=== PATIENT | male | born 1990 | race Caucasian/White ===

== ENCOUNTER 2020-12-21 07:52 | Emergency (ER) | payer SELFPAY ==
[2020-12-21 08:41] VITALS: BP 124/83
[2020-12-21] MEDS ORDERED: FLUORESCEIN 1 MG STRIP OP ONE (10:21)
[2020-12-21] MEDS ORDERED: TETRACAINE 0.5% OPHTH SOLN 4ML OU ONE (10:22)
[2020-12-21] MEDS ORDERED: TETANUS,DIPH,PERTUSS(ACELL) VACCINE 0.5 ML SYRINGE IM ONE (11:17)
--- NOTE | 2020-12-21 11:31 | Emergency Department Report ---
ED Eye Problem HPI - General Chief complaint: Eye Problems Stated complaint: LEFT EYE INURY Time Seen by Provider: 12/21/20 09:23 Source: patient Mode of arrival: Ambulatory Limitations: No Limitations - History of Present Illness Initial comments: This is a 30-year-old male nontoxic, well nourished in appearance, no acute signs of distress presents to the ED with c/o of left eye redness that started yesterday.. 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 Patient stated he was rubbing it and believes he remove the small foreign body but still has eye pain. Patient denies any trauma to the eye. Denies any floaters. Patient denies any visual changes or decreased vision. Patient denies any fever, chills, nausea, vomiting, chest pain, breath, headache, stiff neck numbness or tingling. Patient denies any allergies. Patient denies being up-to-date with tetanus. MD chief complaint: eye pain, foreign body -: days(s) Location: left eye Place: work If Injury: none Eye Symptoms: pain, foreign body sensation Severity: mild Severity scale (0 -10): 3 If Pain, Quality: aching Consistency: constant Associated Symptoms: none. denies: headache, neck pain, nausea/vomiting, cough, rhinorrhea, fever, shortness of breath Treatments Prior to Arrival: none - Related Data Patient Tetanus UTD: No Previous Rx's Medication Instructions Recorded Last Taken Type Polymyxin B Sulf/Trimethoprim 3 drops OS TID 7 Days #1 bottle 12/21/20 Unknown Rx [Polytrim Eye Drops] Allergies Allergy/AdvReac Type Severity Reaction Status Date / Time No Known Allergies Allergy Unverified 12/21/20 08:37 ED Review of Systems ROS: Stated complaint: LEFT EYE INURY Other details as noted in HPI Comment: All other systems reviewed and negative Constitutional: denies: chills, fever Eyes: eye pain. denies: eye discharge, vision change ENT: denies: ear pain, throat pain Respiratory: denies: cough, shortness of breath, wheezing Cardiovascular: denies: chest pain, palpitations Endocrine: no symptoms reported Gastrointestinal: denies: abdominal pain, nausea, diarrhea Genitourinary: denies: urgency, dysuria Musculoskeletal: denies: back pain, joint swelling, arthralgia Skin: denies: rash, lesions Neurological: denies: headache, weakness, paresthesias Psychiatric: denies: anxiety, depression Hematological/Lymphatic: denies: easy bleeding, easy bruising ED Past Medical Hx - Past Medical History Previous Medical History?: No - Surgical History Past Surgical History?: No - Social History Smoking Status: Never Smoker Substance Use Type: Alcohol - Medications Home Medications: Home Medications Medication Instructions Recorded Confirmed Last Taken Type Polymyxin B Sulf/Trimethoprim 3 drops OS TID 7 Days #1 bottle 12/21/20 Unknown Rx [Polytrim Eye Drops] ED Physical Exam - General Limitations: No Limitations General appearance: alert, in no apparent distress - Head Head exam: Present: atraumatic, normocephalic - Eye Eye exam: Present: normal appearance, PERRL, EOMI. Absent: scleral icterus, conjunctival injection, nystagmus, periorbital swelling, periorbital tenderness Pupils: Present: normal accommodation - Expanded Eye Exam Expanded Eyelids: Normal Inspection: Left Pupils: Regular, Round: Left, Reactive: Left Sclera/Conjunctival: Normal Inspection: Left Visual acuity (R) = 20/: 20 Visual acuity (L) = 20/: 20 - Neck Neck exam: Present: normal inspection, full ROM. Absent: lymphadenopathy - Respiratory Respiratory exam: Absent: respiratory distress - Cardiovascular Cardiovascular Exam: Present: regular rate - Extremities Exam Extremities exam: Present: full ROM - Back Exam Back exam: Present: normal inspection, full ROM - Neurological Exam Neurological exam: Present: alert, oriented X3, normal gait - Psychiatric Psychiatric exam: Present: normal affect, normal mood - Skin Skin exam: Present: warm, dry, intact, normal color. Absent: rash - Other Other exam information: Under William lamp, I used fluorescein and tetracaine to examine cornea for corneal abrasion or foreign body, negative for foreign body noted upon exam. There is a small corneal abrasion noted to the left eye. ED Course Vital Signs 12/21/20 08:39 Temperature 97.7 F Pulse Rate 56 L Respiratory 18 Rate Blood Pressure 124/83 O2 Sat by Pulse 100 Oximetry - Reevaluation(s) Reevaluation #1: 12/21/20 11:33 Patient is speaking in full sentences with no signs of distress noted. ED Medical Decision Making - Medical Decision Making 30-year-old male that presents with left corneal abrasion. Patient is stable and was examined by me. Vital signs are stable. Patient received tetanus in the ER. Patient be discharged with Polytrim. Patient has normal visual acuity. Patient was instructed to follow-up with a information technology intern doctor in 2 days or if symptoms worsen and continue return to emergency room as soon as possible. At time of discharge, the patient does not seem toxic or ill in appearance. No acute signs of distress noted. Patient agrees to discharge treatment plan of care. No further questions noted by the patient. Critical care attestation.: If time is entered above; I have spent that time in minutes in the direct care of this critically ill patient, excluding procedure time. ED Disposition Clinical Impression: Left corneal abrasion Qualifiers: Encounter type: initial encounter Qualified Code(s): S05.02XA - Injury of conjunctiva and corneal abrasion without foreign body, left eye, initial encounter Disposition: DC- TO HOME OR SELFCARE Is pt being admited?: No Does the pt Need Aspirin: No Condition: Stable Instructions: Corneal Abrasion Additional Instructions: Follow-up with a information technology intern doctor in 2 days or if symptoms worsen and continue return to emergency room as soon as possible. Prescriptions: Polymyxin B Sulf/Trimethoprim [Polytrim Eye Drops] 3 drops OS TID 7 Days #1 bottle Referrals: PRIMARY CAREMD [Primary Care Provider] - 3-5 Days MARY JO DEL VALLE MD [Staff Physician] - 12/23/20 Forms: Work/School Release Form(ED) Time of Disposition: 11:35
== END 2020-12-21 11:59 | disposition home or self-care (01) ==
LOC: ED 07:52
DX: S05.02XA Injury of conjunctiva and corneal abrasion without foreign body, left eye, initial encounter (principal); Z79.899 Other long term (current) drug therapy; X58.XXXA Exposure to other specified factors, initial encounter; Y93.89 Activity, other specified; Y92.89 Other specified places as the place of occurrence of the external cause; Y99.8 Other external cause status
CPT/HCPCS: 90471; 90715; 99283

== ENCOUNTER 2021-05-07 21:27 | Observation (INO) | payer SELFPAY ==
[2021-05-07] MEDS ORDERED: NALOXONE 0.4 MG/1 ML INJ IV PRN (21:45)
[2021-05-07] MEDS ORDERED: LACTATED RINGERS 1,000 ML IV ONE (21:46)
--- NOTE | 2021-05-07 21:47 | Emergency Department Report ---
ED General Adult HPI - General Chief complaint: Overdose Stated complaint: I took a Percocet and some alcohol, and the next thing I know I am here PUI?: No Time Seen by Provider: 05/07/21 21:39 Source: patient, EMS (Verbal report received from emergency medical services. EMS documentation not available at time of chart dictation ) Mode of arrival: Stretcher Limitations: Other (Patient does not recall what happened) - History of Present Illness Initial comments: The patient is a 30-year-old gentleman. He is not known to myself previously. He is brought to the hospital today by EMS with an EMS articulated complaint of suspected overdose. The patient reports that he was in his usual state of health today, when he drank some beer, and took a Percocet recreationally. He does not know the exact time of ingestion. He states that he went into the shower, and the next thing he knew, he was on the floor. He does not remember falling. EMS reports that they were called for an unresponsive patient. EMS reports to myself that they found the patient on the floor with underwear on. EMS reports normal vital signs in the field, although at one point, they state that the patient was tachycardic and agitated. EMS gave the patient Narcan, which dramatically improved the patient's symptoms. The patient states he was taking the Percocet and alcohol for recreational reasons. He states he is not homicidal or suicidal. He does not have access to guns or firearms. He is not having hallucinations. He states he feels little bit anxious, and he feels like he fell onto his chest, and has some chest wall pain secondary to fall. He denies travel, surgery, immobilization, leg pain, leg swelling, DVT/PE risk factors. He denies focal extremity weakness or numbness. -: This evening Location: chest (Anterior chest wall) Quality: other (Patient does not describe the qualitative nature of) Consistency: now resolved Improves with: medication (Symptoms improved with Narcan) Worsens with: none (Patient denies exacerbating factors) - Related Data Previous Rx's Medication Instructions Recorded Last Taken Type Polymyxin B Sulf/Trimethoprim 3 drops OS TID 7 Days #1 bottle 12/21/20 Unknown Rx [Polytrim Eye Drops] Allergies Allergy/AdvReac Type Severity Reaction Status Date / Time No Known Allergies Allergy Unverified 12/21/20 08:37 ED Review of Systems ROS: Stated complaint: OVERDOSE Other details as noted in HPI Constitutional: malaise. denies: fever Eyes: denies: eye discharge ENT: denies: epistaxis Respiratory: denies: cough Cardiovascular: chest pain, syncope (Possible syncope. The patient is not sure) Gastrointestinal: denies: abdominal pain, nausea, diarrhea Musculoskeletal: myalgia Neurological: confusion Psychiatric: anxiety. denies: auditory hallucinations, visual hallucinations, homicidal thoughts, suicidal thoughts ED Past Medical Hx - Social History Smoking Status: Never Smoker Substance Use Type: Alcohol - Medications Home Medications: Home Medications Medication Instructions Recorded Confirmed Last Taken Type Polymyxin B Sulf/Trimethoprim 3 drops OS TID 7 Days #1 bottle 12/21/20 Unknown Rx [Polytrim Eye Drops] ED Physical Exam - General Limitations: Other (Patient intoxicated) General appearance: alert, appears intoxicated, anxious - Head Head exam: Present: atraumatic, normocephalic - Eye Eye exam: Present: normal appearance, EOMI. Absent: nystagmus - ENT ENT exam: Present: normal exam, normal orophraynx, mucous membranes moist, normal external ear exam - Neck Neck exam: Present: normal inspection, full ROM. Absent: tenderness, meningismus - Respiratory Respiratory exam: Present: normal lung sounds bilaterally, chest wall tenderness. Absent: respiratory distress, wheezes, rales, rhonchi, stridor - Cardiovascular Cardiovascular Exam: Present: normal rhythm, tachycardia, normal heart sounds. Absent: bradycardia, irregular rhythm, systolic murmur, diastolic murmur, rubs, gallop - GI/Abdominal GI/Abdominal exam: Present: soft. Absent: distended, tenderness, guarding, rebound, pulsatile mass - Rectal Rectal exam: Present: deferred - Extremities Exam Extremities exam: Present: normal inspection, full ROM, other (2+ pulses noted in the bilateral upper and lower extremities. There is no palpable cord. negative Homans sign. Muscular compartments are soft. The pelvis is stable.). Absent: pedal edema, calf tenderness - Back Exam Back exam: Present: normal inspection, full ROM. Absent: tenderness, CVA tenderness (R), CVA tenderness (L), paraspinal tenderness, vertebral tenderness - Neurological Exam Neurological exam: Present: alert, other (No facial droop. Tongue midline. Extraocular movements intact bilaterally. Facial sensation intact to light touch in V1, V2, V3 distribution bilaterally. 5 and a 5 strength in 4 extremities. Sensation intact to light touch in 4 extremities.) - Psychiatric Psychiatric exam: Present: anxious. Absent: homicidal ideation, suicidal ideation - Skin Skin exam: Present: warm, dry, intact, normal color. Absent: rash ED Course Vital Signs 05/07/21 05/07/21 05/07/21 21:40 21:46 22:00 Temperature Pulse Rate 103 H 105 H Respiratory 20 19 Rate Blood Pressure 123/79 112/62 Blood Pressure [Left] O2 Sat by Pulse 86 94 96 Oximetry O2 Sat by Pulse Oximetry [ Digit-Finger] 05/07/21 05/07/21 05/07/21 22:18 22:30 22:45 Temperature 99 F Pulse Rate 97 H 106 H 100 H Respiratory 13 14 18 Rate Blood Pressure 112/62 119/71 Blood Pressure 119/71 [Left] O2 Sat by Pulse 93 98 99 Oximetry O2 Sat by Pulse Oximetry [ Digit-Finger] 05/07/21 05/08/21 05/08/21 22:46 00:18 00:40 Temperature Pulse Rate 107 H 88 Respiratory 12 18 Rate Blood Pressure 119/71 Blood Pressure 107/76 [Left] O2 Sat by Pulse 96 100 Oximetry O2 Sat by Pulse 99 Oximetry [ Digit-Finger] - Reevaluation(s) Reevaluation #1: 05/07/21 22:02 Differential diagnosis, including but not limited to: Alcohol intoxication, polysubstance ingestion, costochondritis, chest wall pain, cervical spine injury, intracranial injury, orthostasis, vagal event Assessment and plan: 30-year-old gentleman, who reportedly took a Percocet, and consumed alcohol for recreational reasons, unknown time of ingestion, who subsequently lost consciousness in the shower, and family called 911. The patient is awake and alert and protecting his airway, minimally confused, and s till has clinical intoxication at this time. He does not meet criteria for 1013 hold, and he is cooperative. We will observe patient pending clinical sobriety. We will obtain noncontrast CT scan of the brain and cervical spine, x-ray of the chest, appropriate laboratory studies, start IV fluids, and order as needed Narcan. Patient denies travel, surgery, immobilization, DVT/PE risk factors, and I find him to be low risk by Jarod criteria for pulmonary embolism. 05/08/21 00:51 CT scan of the brain and cervical spine negative for acute findings. Laboratory studies are reviewed and appreciated. Noncontrast CT scan of the brain and the cervical spine showed no traumatic findings. Lung architecture noted on CT scan neck, as well as x-ray of the chest suggests aspiration pneumonitis. Patient O2 sat 93%. This may be contributing to his chest pain. Given overdose, mild hypoxia, evidence of aspiration pneumonia/pneumonitis, I recommended admission to the medical service for airway observation, supplemental oxygen, and antibiotics. I discussed this with the patient and he is agreeable to the plan of care. With his permission, I also discussed the details of his care with his significant other. Patient will be admitted to the medical service under the care of the hospital physician, Dr Checo Burrows - Pulse Oximetry Interpretation Digit-Finger Initial Pulse Oximetry Readin O2 Sat by Pulse Oximetry: 99 Actions Taken: none ED Medical Decision Making - Lab Data Result diagrams: 05/07/21 21:55 05/07/21 21:55 Vital Signs 05/07/21 05/07/21 05/07/21 21:40 21:46 22:00 Pulse Rate 103 H 105 H Respiratory 20 19 Rate Blood Pressure 123/79 112/62 O2 Sat by Pulse 86 94 96 Oximetry O2 Sat by Pulse Oximetry [ Digit-Finger] 05/07/21 22:04 Pulse Rate Respiratory Rate Blood Pressure O2 Sat by Pulse Oximetry O2 Sat by Pulse 99 Oximetry [ Digit-Finger] - EKG Data -: EKG Interpreted by [facility] EKG shows normal: sinus rhythm Rate: tachycardia - EKG Data When compared to previous EKG there are: previous EKG unavailable 05/07/21 22:30 The EKG is interpreted at 22: 21 Sinus rhythm, tachycardia, 102 bpm. Normal axis, normal intervals, high left ventricular voltage, early repolarization. Abnormal EKG. This is not a STEMI. - Radiology Data Radiology results: report reviewed, image reviewed CT head without contrast INDICATION : Fall, closed head injury, polysubstance intoxicati. TECHNIQUE: Axial imaging performed from the skull apex through the skull base without the use of contrast. All CT scans at this location are performed using CT dose reduction for ALARA by means of automated exposure control. COMPARISON: None FINDINGS: Parenchyma: No mass, stroke or hemorrhage. Ventricles: Ventricles are normal in size and appear symmetric. Soft tissues: Soft tissues including the orbits appear normal. Bones: No acute osseous abnormality. Sinuses: Sinuses and mastoid air cells are clear. IMPRESSION: Negative CT brain without contrast. Signer Name: Timi More MD Signed: 05/07/2021 9:36 PM Workstation Name: [id number] CHEST 1 VIEW 05/07/2021 9:18 PM INDICATION / CLINICAL INFORMATION: chest pain after fll. COMPARISON: None available. FINDINGS: SUPPORT DEVICES: None. HEART / MEDIASTINUM: No significant abnormality. LUNGS / PLEURA: Mild increased opacity at the left chest. Right lung is clear. No pneumothorax or pleural fluid. ADDITIONAL FINDINGS: No significant additional findings. IMPRESSION: Increased opacity at the left chest is in part due to soft tissue attenuation. Superimposed aspiration may also be present as changes are slightly more patchy at the left base. Signer Name: Timi More MD Signed: 05/07/2021 9:25 PM Workstation Name: [id number] Aspiration is partially imaged at the left lung apex. Signer Name: Timi More MD Signed: 05/07/2021 10:00 PM Workstation Name: [id number] CT cervical spine wo con INDICATION: Fall, closed head injury, polysubstance intoxicati. TECHNIQUE: All CT scans at this location are performed using the following dose modulation technique: Automated exposure control. CONTRAST: None. COMPARISON: None available. FINDINGS: Satisfactory alignment without vertebral compression or significant degenerative change. No significant soft tissue injury. IMPRESSION: Unremarkable CT cervical spine without contrast. Signer Name: Timi More MD Signed: 05/07/2021 9:39 PM Workstation Name: [id number] Critical care attestation.: If time is entered above; I have spent that time in minutes in the direct care of this critically ill patient, excluding procedure time. ED Disposition Clinical Impression: Aspiration pneumonitis, Overdose Disposition: 09 ADMITTED INPATIENT Is pt being admited?: Yes Does the pt Need Aspirin: No Condition: Good
--- NOTE | 2021-05-07 22:30 | XRay Report ---
CHEST 1 VIEW 05/07/2021 9:18 PM INDICATION / CLINICAL INFORMATION: chest pain after fll. COMPARISON: None available. FINDINGS: SUPPORT DEVICES: None. HEART / MEDIASTINUM: No significant abnormality. LUNGS / PLEURA: Mild increased opacity at the left chest. Right lung is clear. No pneumothorax or ple ural fluid. ADDITIONAL FINDINGS: No significant additional findings. IMPRESSION: Increased opacity at the left chest is in part due to soft tissue attenuation. Superimpos ed aspiration may also be present as changes are slightly more patchy at the left base. Signer Name: Timi More MD Signed: 05/07/2021 10:25 PM Workstation Name: [id number]
--- NOTE | 2021-05-07 22:40 | Cat Scan Report ---
CT head without contrast INDICATION : Fall, closed head injury, polysubstance intoxicati. TECHNIQUE: Axial imaging performed from the skull apex through the skull base without the use of con trast. All CT scans at this location are performed using CT dose reduction for ALARA by means of aut omated exposure control. COMPARISON: None FINDINGS: Parenchyma: No mass, stroke or hemorrhage. Ventricles: Ventricles are normal in size and appear symmetric. Soft tissues: Soft tissues including the orbits appear normal. Bones: No acute osseous abnormality. Sinuses: Sinuses and mastoid air cells are clear. IMPRESSION: Negative CT brain without contrast. Signer Name: Timi More MD Signed: 05/07/2021 10:36 PM Workstation Name: [id number]
--- NOTE | 2021-05-07 22:43 | Cat Scan Report ---
CT cervical spine wo con INDICATION: Fall, closed head injury, polysubstance intoxicati. TECHNIQUE: All CT scans at this location are performed using the following dose modulation technique: Automated exposure control. CONTRAST: None. COMPARISON: None available. FINDINGS: Satisfactory alignment without vertebral compression or significant degenerative change. No significant soft tissue injury. IMPRESSION: Unremarkable CT cervical spine without contrast. Signer Name: Timi More MD Signed: 05/07/2021 10:39 PM Workstation Name: [id number]
[2021-05-07 22:48] LABS: Hematocrit 43.7 % (35.5-45.6); Hemoglobin 14.6 gm/dl (11.8-15.2); Mean Corpuscular HGB Conc 34 % (32-34); Mean Corpuscular Volume 98 fl (84-94); Platelet Count 274 K/mm3 (140-440); Red Blood Count 4.45 M/mm3 (3.65-5.03); Red Cell Distribution Width 12.5 % (13.2-15.2)
[2021-05-07 22:57] LABS: INR 0.93 (0.87-1.13)
[2021-05-07 23:01] LABS: Alanine Aminotransferase 45 units/L (7-56); Albumin 4.2 g/dL (3.9-5); BUN/Creatinine Ratio 18; Blood Urea Nitrogen 21 mg/dL (9-20); Calcium 9.7 mg/dL (8.4-10.2); Hemolysis Index 37
[2021-05-08] MEDS ORDERED: DEXTROSE 50% IN WATER (25GM) 50 ML VIAL IV PRN (00:11)
[2021-05-08] MEDS ORDERED: DEXTROSE 50% IN WATER (25GM) 50 ML SYRINGE IV ONE (00:11)
[2021-05-08] MEDS ORDERED: cefTRIAXone/NS 1 GM/50 ML 1 GM/50 ML BAG IV ONE (00:50)
[2021-05-08] MEDS ORDERED: AZITHROMYCIN/NS 500 MG/250 ML 500 MG/250 ML BAG IV ONE (00:50)
[2021-05-08] MEDS ORDERED: SODIUM CHLORIDE 0.9% 500 ML 500 ML IV ONE (00:50)
[2021-05-08] MEDS ORDERED: MAGNESIUM HYDROXIDE (MOM) ORAL LIQD UDC PO PRN (01:17)
[2021-05-08] MEDS ORDERED: MORPHINE 4 MG/1 ML INJ IV PRN (01:17)
[2021-05-08] MEDS ORDERED: ONDANSETRON 4 MG/2 ML INJ IV PRN (01:17)
[2021-05-08] MEDS ORDERED: ACETAMINOPHEN 325 MG TAB PO PRN (01:17)
[2021-05-08] MEDS ORDERED: MORPHINE 2 MG/1 ML INJ IV PRN (01:17)
--- NOTE | 2021-05-08 01:24 | History and Physical Report ---
History of Present Illness Date of examination: 05/08/21 Date of admission: 05/08/2021 Chief complaint: Altered mental status History of present illness: 30-year-old male brought in to the emergency room today via EMS for suspected overdose. Was said to be drinking beer and also had some Percocet for pain. He states that he went into the shower and thereafter suddenly collapsed on the floor. He cannot recall events leading to his for. Upon arrival of EMS was found to be unresponsive and was given Narcan with immediate response. He denies any headache or dizziness, no nausea vomiting, no abdominal pain, he had some chest discomfort but denies any shortness of breath. He states he has been having some mild cough since arrival in the emergency room. Patient was said to have vomited prior to arrival in the emergency room. He admits that he has been using Percocet occasionally for his pain but then he drank some alcohol today after which all the symptoms started Work-up in the emergency room today, chest x-ray reveals:Increased opacity at the left chest is in part due to soft tissue attenuation. Superimposed aspiration may also be present as changes are slightly more patchy at the left base. CT scan of the head and cervical spine were unremarkable. Past History Past Medical History: No medical history Past Surgical History: No surgical history Social history: smoking (Current daily smoker), alcohol abuse, other (Occasional Cocaine and Marijuana use in the past) Family history: no significant family history Medications and Allergies Allergies Allergy/AdvReac Type Severity Reaction Status Date / Time No Known Allergies Allergy Unverified 12/21/20 08:37 Home Medications Medication Instructions Recorded Confirmed Last Taken Type Polymyxin B Sulf/Trimethoprim 3 drops OS TID 7 Days #1 bottle 12/21/20 Unknown Rx [Polytrim Eye Drops] Active Meds: Active Medications Acetaminophen (Acetaminophen 325 Mg Tab) 650 mg PO Q4H PRN PRN Reason: Pain MILD(1-3)/Fever >100.5/CAMPBELL Dextrose (Dextrose 50% In Water (25gm) 50 Ml Vial) 50 gm IV Q30MIN PRN; Protocol PRN Reason: Hypoglycemia Azithromycin (Zithromax/Ns) 500 mg in 250 mls @ 250 mls/hr IV ONCE ONE; Protocol Stop: 05/08/21 01:49 Naloxone HCl (Naloxone 0.4 Mg/1 Ml Inj) 0.1 mg IV Q2MIN PRN PRN Reason: Res Rate </= 8 or 02 SAT < 92% Ondansetron HCl (Ondansetron 4 Mg/2 Ml Inj) 4 mg IV Q8H PRN PRN Reason: Nausea And Vomiting Sodium Chloride (Sodium Chloride 0.9% 10 Ml Flush Syringe) 10 ml IV BID RIN Sodium Chloride (Sodium Chloride 0.9% 10 Ml Flush Syringe) 10 ml IV PRN PRN PRN Reason: LINE FLUSH Review of Systems Constitutional: no fever, no chills Ears, nose, mouth and throat: no nasal congestion, no sore throat Cardiovascular: no chest pain, no palpitations Respiratory: no cough, no shortness of breath Gastrointestinal: nausea, vomiting, no abdominal pain, no diarrhea Genitourinary Male: no dysuria, no hematuria, no flank pain, no nocturia Musculoskeletal: no neck pain, no low back pain Integumentary: no rash, no pruritis Neurological: confusion, no seizures, no tremors, no headaches, no change in speech Psychiatric: no anxiety, no depression Endocrine: no polyphagia, no polydipsia, no polyuria Exam - Constitutional Vitals: Temp Pulse Resp BP Pulse Ox 99 F 88 18 107/76 99 05/07/21 22:45 05/08/21 00:40 05/08/21 00:40 05/08/21 00:40 05/08/21 00:55 General appearance: Present: no acute distress, well-nourished - EENT Eyes: Present: PERRL, EOM intact. Absent: scleral icterus ENT: hearing intact, clear oral mucosa, dentition normal - Neck Neck: Present: supple, normal ROM - Respiratory Respiratory effort: normal Respiratory: left: diminished - Cardiovascular Rhythm: regular Heart Sounds: Present: S1 & S2. Absent: gallop, systolic murmur, diastolic murmur, rub, click - Extremities Extremities: no ischemia, pulses intact, pulses symmetrical, No edema, normal temperature, normal color, Full ROM Peripheral Pulses: within normal limits - Abdominal General gastrointestinal: Present: soft, non-tender, non-distended, normal bowel sounds. Absent: mass - Integumentary Integumentary: Present: clear, warm, dry, normal turgor. Absent: rash - Musculoskeletal Musculoskeletal: strength equal bilaterally - Psychiatric Psychiatric: appropriate mood/affect, intact judgment & insight, memory intact, cooperative - Neurologic Neurologic: CNII-XII intact, no focal deficits, moves all extremities HEART Score - HEART Score Troponin: Troponin T < 0.010 ng/mL (0.00-0.029) 05/07/21 21:55 Results - Labs CBC & Chem 7: 05/07/21 21:55 05/07/21 21:55 Labs: Abnormal lab results 05/07/21 05/07/21 05/07/21 Range/Units 21:55 21:55 21:55 WBC 11.9 H (4.5-11.0) K/mm3 MCV 98 H (84-94) fl MCH 33 H (28-32) pg RDW 12.5 L (13.2-15.2) % BUN 21 H (9-20) mg/dL Glucose 73 L (75-100) mg/dL AST 60 H (5-40) units/L Salicylates < 0.3 L (2.8-20.0) mg/dL Acetaminophen (10.0-30.0) ug/mL 05/07/21 Range/Units 21:55 WBC (4.5-11.0) K/mm3 MCV (84-94) fl MCH (28-32) pg RDW (13.2-15.2) % BUN (9-20) mg/dL Glucose (75-100) mg/dL AST (5-40) units/L Salicylates (2.8-20.0) mg/dL Acetaminophen 5.0 L (10.0-30.0) ug/mL Assessment and Plan - Patient Problems (1) Aspiration pneumonitis Current Visit: No Status: Acute Plan to address problem: Patient placed on empiric IV antibiotics. (2) Overdose Current Visit: No Status: Acute Plan to address problem: Patient has been using Percocet and also alcohol. He had Narcan en route to the hospital with significant improvement in his mental status. (3) DVT prophylaxis Current Visit: No Status: Acute Plan to address problem: Patient placed on subcutaneous heparin. (4) Full code status Current Visit: No Status: Acute Plan to address problem: Patient is full code.
[2021-05-08] MEDS ORDERED: SODIUM CHLORIDE 0.9% 1000 ML 1,000 ML IV SCH (01:30)
[2021-05-08] MEDS ORDERED: HEPARIN 5,000 UNIT/1 ML VIAL SUB-Q SCH (06:00)
--- NOTE | 2021-05-08 08:27 | Discharge Summary ---
Providers - Providers Date of Admission: 05/08/21 00:55 Attending physician: NATE GIRON MD Primary care physician: FLIGHT DYNAMICIST Hospitalization Reason for admission: Contusion Condition: Good Hospital course: 30-year-old male brought in to the emergency room today via EMS for suspected overdose. Was said to be drinking beer and also had some Percocet for pain. He states that he went into the shower and thereafter suddenly collapsed on the floor. He cannot recall events leading to his for. Upon arrival of EMS was found to be unresponsive and was given Narcan with immediate response. He denies any headache or dizziness, no nausea vomiting, no abdominal pain, he had some chest discomfort but denies any shortness of breath. He states he has been having some mild cough since arrival in the emergency room. Patient was said to have vomited prior to arrival in the emergency room. He admits that he has been using Percocet occasionally for his pain but then he drank some alcohol today after which all the symptoms started Work-up in the emergency room today, chest x-ray reveals:Increased opacity at the left chest is in part due to soft tissue attenuation. Superimposed aspiration may also be present as changes are slightly more patchy at the left base. CT scan of the head and cervical spine were unremarkable. Patient seen and examined this morning resting comfortably. Family member at bedside. No fever no cough no chest pain. Area of mild tenderness on percussion of the chest noted mid lower chest. Lung sounds are clear. 20 minutes spent counseling the patient on tobacco alcohol and illicit drug use cessation he verbalized understanding. Also discussed with him the importance to return to the ER if he begins to experience any blurry vision or worsening chest pain he verbalized understanding. Will be discharged on oral antibiotics with instructions to hold start if any fever or he could go ahead and start it now due to the possible aspiration pneumonitis (1) Aspiration pneumonitis Current Visit: No Status: Acute Plan to address problem: Patient placed on empiric IV antibiotics. (2) Overdose Current Visit: No Status: Acute Plan to address problem: Patient has been using Percocet and also alcohol. He had Narcan en route to the hospital with significant improvement in his mental status. (3) chest wall contusion (4) syncope Disposition: 01 HOME / SELF CARE / HOMELESS Final Discharge Diagnosis (Prints w/discharge instructions): Aspiration pneumonitis following chest wall contusion from a syncopal episode Time spent for discharge: 35-minute Core Measure Documentation - Palliative Care Palliative Care/ Comfort Measures: Not Applicable - Core Measures Any of the following diagnoses?: none Exam - Physical Exam Narrative exam: VITAL SIGNS: Reviewed. GENERAL: The patient appears normally developed, Vital signs as documented. HEAD: No signs of head trauma. EYES: Pupils are equal. Extraocular motions intact. EARS: Hearing grossly intact. MOUTH: Oropharynx is normal. NECK: No adenopathy, no JVD. CHEST: Chest with clear breath sounds bilaterally. No wheezes, rales, or rhonchi. CARDIAC: Regular rate and rhythm. S1 and S2, without murmurs, gallops, or rubs. VASCULAR: No Edema. Peripheral pulses normal and equal in all extremities. ABDOMEN: Soft, non tender and non distended. No rebound or guarding, and no masses palpated. Bowel Sounds normal. MUSCULOSKELETAL: Mild left-sided chest wall tenderness on palpation, Good range of motion of all major joints. Extremities without clubbing, cyanosis or edema. NEUROLOGIC EXAM: Alert and oriented x 3 No focal sensory or strength deficits. Speech normal. Follows commands. PSYCHIATRIC: Mood normal. SKIN: detail exam as documented in skin assessment - Constitutional Vitals: Temp Pulse Resp BP Pulse Ox 99 F 78 18 115/62 98 05/07/21 22:45 05/08/21 07:58 05/08/21 07:53 05/08/21 07:58 05/08/21 07:53 Plan Activity: advance as tolerated, fall precautions Diet: low fat Special Instructions: record daily weights, record daily BP diary, smoking cessation Care Plan Goals: Must follow with Primary care doctor Must avoid ETOH, TOBACCO AND ILLICIT DRUG USE MUST AVOID COMBINATION OF ETOH AND OPOIDS. Follow up with: PRIMARY CARE, [Primary Care Provider] - 7 Days Prescriptions: levoFLOXacin [Levaquin TAB] 500 mg PO QDAY #7 tablet
[2021-05-08 10:00] VITALS: BP 108/68
[2021-05-08] MEDS ORDERED: AZITHROMYCIN/NS 500 MG/250 ML 500 MG/250 ML BAG IV SCH (22:00)
[2021-05-08] MEDS ORDERED: cefTRIAXone/NS 2 GM/100 ML 2 GM/100 ML BAG IV SCH (22:00)
--- NOTE | 2021-05-09 11:36 | Electrocardiograph Report ---
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
== END 2021-05-08 11:05 | disposition home or self-care (01) ==
LOC: ED 21:27 → 3A 05-08 00:55
PROVIDERS: ADMIT Internal Medicine Geriatric Medicine; ATTEND Internal Medicine
DX: T50.901A Poisoning by unspecified drugs, medicaments and biological substances, accidental (unintentional), initial encounter (principal); J69.0 Pneumonitis due to inhalation of food and vomit; S20.219A Contusion of unspecified front wall of thorax, initial encounter; F17.210 Nicotine dependence, cigarettes, uncomplicated; F14.10 Cocaine abuse, uncomplicated; F12.10 Cannabis abuse, uncomplicated; W18.30XA Fall on same level, unspecified, initial encounter; Y93.89 Activity, other specified; Y92.89 Other specified places as the place of occurrence of the external cause; Y99.8 Other external cause status
CPT/HCPCS: 36415; 70450; 71045; 72125; 80053; 82140; 82550; 82962; 84484; 85027; 85610; 87040; 93005; 96361; 96365; 96366; 96368; 96372; 96375; 99285; G0378; J0456; J0696; J1644; J2405; J7030; J7120; 80320; J3490; Q0162; G0480

== ENCOUNTER 2021-06-18 23:00 | Emergency (ER) | payer SELFPAY ==
[2021-06-19] MEDS ORDERED: LORazepam 2 MG/ML VIAL IV ONE (00:34)
[2021-06-19] MEDS ORDERED: SODIUM CHLORIDE 0.9% 1000 ML 1,000 ML IV ONE ×2 (00:34→00:37)
[2021-06-19] MEDS ORDERED: ONDANSETRON 4 MG/2 ML INJ IV ONE (00:34)
[2021-06-19] MEDS ORDERED: DIPHENOXYLATE/ATROPINE TAB PO ONE (00:35)
--- NOTE | 2021-06-19 00:40 | Emergency Department Report ---
HPI - HPI HPI: Room 21 The patient is a 30-year-old male present with a chief complaint of heroin withdrawal. Patient states he has a history of snorting heroin and last use this morning at approximate 08: 00. The patient states he was attempting to quit and he is going through withdrawals. Patient states his symptoms include diarrhea, nausea/vomiting, twitching, chest pain and abdominal pain. Patient states he has been through opiate withdrawals once in the past and this feels the same way. <ALEX STAPLETON - Last Filed: 06/19/21 03:57> <RJ DE LOS SANTOS - Last Filed: 06/19/21 10:28> - General Chief Complaint: Abdominal Pain Time Seen by Provider: 06/19/21 00:22 ED Past Medical Hx - Past Medical History Previous Medical History?: No - Surgical History Past Surgical History?: No - Family History Family history: no significant - Social History Smoking Status: Current Every Day Smoker (1/2 pack/day) Substance Use Type: Alcohol (Occasional), Cocaine (Crack), Heroin (Snorts. Denies IVDA), Marijuana <ALEX STAPLETON - Last Filed: 06/19/21 03:57> <RJ DE LOS SANTOS - Last Filed: 06/19/21 10:28> - Medications Home Medications: Home Medications Medication Instructions Recorded Confirmed Last Taken Type levoFLOXacin [Levaquin TAB] 500 mg PO QDAY #7 tablet 05/08/21 Unknown Rx ED Review of Systems ROS: Stated complaint: ABD PAIN/WITHDRAWLS Other details as noted in HPI Constitutional: no symptoms reported Eyes: denies: eye pain ENT: denies: throat pain Respiratory: no symptoms reported Cardiovascular: chest pain Endocrine: no symptoms reported Gastrointestinal: abdominal pain, nausea, vomiting, diarrhea Genitourinary: denies: dysuria Musculoskeletal: myalgia Neurological: denies: headache <ALEX STAPLETON - Last Filed: 06/19/21 03:57> ROS: Stated complaint: ABD PAIN/WITHDRAWLS Other details as noted in HPI <RJ DE LOS SANTOS - Last Filed: 06/19/21 10:28> Physical Exam - Physical Exam Vital Signs: Vital Signs 06/19/21 00:15 Temperature 98.6 F Pulse Rate 122 H Respiratory 18 Rate Blood Pressure 139/96 O2 Sat by Pulse 100 Oximetry Physical Exam: GENERAL: The patient is well-developed well-nourished male lying on stretcher appearing anxious. [] HEENT: Normocephalic. Atraumatic. Extraocular motions are intact. Patient has moist mucous membranes. NECK: Supple. Trachea midline CHEST/LUNGS: Clear to auscultation. There is no respiratory distress noted. HEART/CARDIOVASCULAR: Regular. There is tachycardia. There is no gallop rub or murmur. ABDOMEN: Abdomen is soft, without focal tenderness. Patient has normal bowel sounds. There is no abdominal distention. SKIN: There is no rash. There is no edema. There is no diaphoresis. NEURO: The patient is awake, alert, and oriented. The patient is cooperative. The patient has no focal neurologic deficits. The patient has normal speech. GCS 15 MUSCULOSKELETAL: There is no evidence of acute injury. <ALEX STAPLETON - Last Filed: 06/19/21 03:57> - Physical Exam Vital Signs: Vital Signs 06/19/21 06/19/21 06/19/21 00:15 01:45 02:01 Temperature 98.6 F Pulse Rate 122 H 61 Respiratory 18 18 Rate Blood Pressure 139/96 Blood Pressure 119/69 [Right] O2 Sat by Pulse 100 96 97 Oximetry 06/19/21 06/19/21 06/19/21 03:01 04:01 08:31 Temperature Pulse Rate 56 L 61 78 Respiratory 18 18 13 Rate Blood Pressure Blood Pressure 99/56 101/53 116/69 [Right] O2 Sat by Pulse 98 95 100 Oximetry <RJ DE LOS SANTOS - Last Filed: 06/19/21 10:28> ED Course Vital Signs 06/19/21 00:15 Temperature 98.6 F Pulse Rate 122 H Respiratory 18 Rate Blood Pressure 139/96 O2 Sat by Pulse 100 Oximetry <ALEX STAPLETON - Last Filed: 06/19/21 03:57> Vital Signs 06/19/21 06/19/21 06/19/21 00:15 01:45 02:01 Temperature 98.6 F Pulse Rate 122 H 61 Respiratory 18 18 Rate Blood Pressure 139/96 Blood Pressure 119/69 [Right] O2 Sat by Pulse 100 96 97 Oximetry 06/19/21 06/19/21 06/19/21 03:01 04:01 08:31 Temperature Pulse Rate 56 L 61 78 Respiratory 18 18 13 Rate Blood Pressure Blood Pressure 99/56 101/53 116/69 [Right] O2 Sat by Pulse 98 95 100 Oximetry - Reevaluation(s) Reevaluation #1: 06/19/21 10:28 Charge nurse informed me that patient left AGAINST MEDICAL ADVICE before proper disposition could be provided. <RJ DE LOS SANTOS - Last Filed: 06/19/21 10:28> ED Medical Decision Making - Lab Data Result diagrams: 06/19/21 00:44 06/19/21 00:44 - EKG Data -: EKG Interpreted by Me EKG shows normal: sinus rhythm Rate: normal - EKG Data When compared to previous EKG there are: previous EKG unavailable Interpretation: other (Early repolarization) - Radiology Data Radiology results: report reviewed (Chest x-ray), image reviewed (Chest x-ray) interpreted by me: Chest x-ray-no definite focal infiltrates, no pneumothorax [address] [address] XRay Report Signed Patient: FAVIO OBRIEN MR#: [id number] : [birth year] Acct:[id number] Age/Sex: 30 / M ADM Date: 06/18/21 Loc: ED Attending Dr: Ordering Physician: ALEX STAPLETON MD Date of Service: 06/19/21 Procedure(s): XR chest 1V ap Accession Number(s): [id number] cc: ALEX STAPLETON MD Fluoro Time In Minutes: CHEST 1 VIEW 06/19/2021 12:47 AM INDICATION / CLINICAL INFORMATION: chest pain. COMPARISON: 05/07/2021 FINDINGS: SUPPORT DEVICES: None. HEART / MEDIASTINUM: No significant abnormality. LUNGS / PLEURA: No significant pulmonary or pleural abnormality. No pneumothorax. ADDITIONAL FINDINGS: No significant additional findings. IMPRESSION: 1. No acute findings. Signer Name: Tavo Meke DO Signed: 06/19/2021 2:03 AM Workstation Name: [id number] Transcribed By: BRAYAN Dictated By: TAVO MEEK DO Electronically Authenticated By: TAVO MEEK DO Signed Date/Time: 06/19/21202 DD/ 2 TD/TT: - Differential Diagnosis Opiate withdrawal <ALEX STAPLETON - Last Filed: 06/19/21 03:57> - Lab Data Result diagrams: 06/19/21 00:44 06/19/21 00:44 <RJ DE LOS SANTOS - Last Filed: 06/19/21 10:28> Critical care attestation.: If time is entered above; I have spent that time in minutes in the direct care of this critically ill patient, excluding procedure time. <ALEX STAPLETON - Last Filed: 06/19/21 03:57> Critical care attestation.: If time is entered above; I have spent that time in minutes in the direct care of this critically ill patient, excluding procedure time. <RJ DE LOS SANTOS - Last Filed: 06/19/21 10:28> ED Disposition <ALEX STAPLETON - Last Filed: 06/19/21 03:57> Is pt being admited?: No Does the pt Need Aspirin: No <RJ DE LOS SANTOS - Last Filed: 06/19/21 10:28> Clinical Impression: Opiate withdrawal, Overdose, Cocaine abuse, Aspiration pneumonitis Disposition: LEFT AGAINST MEDICAL ADVICE Condition: Stable Referrals: PRIMARY CARE,MD [Primary Care Provider] - 3-5 Days
[2021-06-19 01:18] LABS: Creatine Kinase MB 1.5 ng/mL (0.0-4.0)
[2021-06-19 01:20] LABS: Alanine Aminotransferase 10 units/L (7-56); Albumin 4.2 g/dL (3.9-5); BUN/Creatinine Ratio 13; Blood Urea Nitrogen 17 mg/dL (9-20); Calcium 9.6 mg/dL (8.4-10.2); Hemolysis Index 5
[2021-06-19 01:36] LABS: Basophils % (Auto) 0.3 % (0.0-1.8); Eosinophils # (Auto) 0.1 K/mm3 (0.0-0.4); Eosinophils % (Auto) 0.7 % (0.0-4.3); Hematocrit 43.1 % (35.5-45.6); Hemoglobin 13.9 gm/dl (11.8-15.2); Lymphocytes % (Auto) 9.5 % (13.4-35.0); Mean Corpuscular HGB Conc 32 % (32-34); Mean Corpuscular Volume 96 fl (84-94); Monocytes # (Auto) 0.8 K/mm3 (0.0-0.8); Monocytes % (Auto) 7.5 % (0.0-7.3); Platelet Count 273 K/mm3 (140-440); Red Cell Distribution Width 12.6 % (13.2-15.2)
--- NOTE | 2021-06-19 02:08 | XRay Report ---
CHEST 1 VIEW 06/19/2021 12:47 AM INDICATION / CLINICAL INFORMATION: chest pain. COMPARISON: 05/07/2021 FINDINGS: SUPPORT DEVICES: None. HEART / MEDIASTINUM: No significant abnormality. LUNGS / PLEURA: No significant pulmonary or pleural abnormality. No pneumothorax. ADDITIONAL FINDINGS: No significant additional findings. IMPRESSION: 1. No acute findings. Signer Name: Tavo Neri DO Signed: 06/19/2021 2:03 AM Workstation Name: [id number]
[2021-06-19 02:40] LABS: Amphetamine Screen,Urine Negative; Benzodiazepines Screen,Urine Negative; Cannabinoid Screen,Urine Negative; Methadone Screen,Urine Negative; Opiate Screen,Urine Negative
[2021-06-19 02:57] LABS: Cocaine Screen,Urine PRESUMPTIVE POSITIVE
[2021-06-19 03:09] LABS: Bilirubin,Urine NEG (Negative); Blood,Urine NEG (Negative); Color,Urine Colorless (Yellow); Protein,Urine <15 mg/dL mg/dL (Negative); RBC,Urine < 1.0 /HPF (0.0-6.0); Urobilinogen,Urine < 2.0 mg/dL (<2.0); WBC,Urine < 1.0 /HPF (0.0-6.0)
[2021-06-19 08:32] VITALS: BP 116/69
--- NOTE | 2021-06-20 09:39 | Electrocardiograph Report ---
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
== END 2021-06-19 09:00 | disposition left against medical advice (07) ==
LOC: ED 23:00
DX: F11.23 Opioid dependence with withdrawal (principal); F17.200 Nicotine dependence, unspecified, uncomplicated; F12.10 Cannabis abuse, uncomplicated; F14.10 Cocaine abuse, uncomplicated; J69.0 Pneumonitis due to inhalation of food and vomit; T40.2X1A Poisoning by other opioids, accidental (unintentional), initial encounter; Y92.89 Other specified places as the place of occurrence of the external cause
CPT/HCPCS: 36415; 71045; 80053; 80307; 81001; 82550; 82553; 83690; 84484; 85025; 93005; 96361; 96374; 96375; 99284; J2060; J2405; J7030; 80320; Q0162; G0480

== ENCOUNTER 2021-08-26 00:28 | Emergency (ER) | payer SELFPAY ==
[2021-08-26] MEDS ORDERED: ONDANSETRON 4 MG/2 ML INJ IV ONE ×2 (01:32→03:24)
[2021-08-26] MEDS ORDERED: SODIUM CHLORIDE 0.9% 1000 ML 1,000 ML IV ONE (01:32)
[2021-08-26] MEDS ORDERED: LORazepam 2 MG/ML VIAL IV STA (01:33)
[2021-08-26] MEDS ORDERED: cloNIDine 0.1 MG TAB PO STA (01:33)
--- NOTE | 2021-08-26 02:21 | Emergency Department Report ---
ED General Adult HPI - General Chief complaint: Pain General Stated complaint: DETOX/WITHDRAWALS PUI?: No Time Seen by Provider: 08/26/21 01:30 Source: patient, family Mode of arrival: Wheelchair Limitations: No Limitations - History of Present Illness Initial comments: Chief complaint: "I am having withdrawal from heroin. I want to stop." HPI: This is a 31-year-old male with history of heroin dependence whose last use of heroin was yesterday. He has nausea vomiting. He feels dehydrated. He denies suicidal homicidal ideation. He denies depression. -: Gradual, days(s) (1 to 2 days of symptoms) Severity scale (0 -10): 4 Quality: aching (Body aches) Consistency: constant Improves with: none Worsens with: none Associated Symptoms: nausea/vomiting Treatments Prior to Arrival: none - Related Data Previous Rx's Medication Instructions Recorded Last Taken Type levoFLOXacin [Levaquin TAB] 500 mg PO QDAY #7 tablet 05/08/21 Unknown Rx LORazepam [Ativan] 0.5 mg PO Q6H PRN #10 tablet 08/26/21 Unknown Rx Ondansetron [Zofran Odt] 4 mg PO Q8HR PRN #10 tab.rapdis 08/26/21 Unknown Rx Allergies Allergy/AdvReac Type Severity Reaction Status Date / Time No Known Allergies Allergy Unverified 12/21/20 08:37 ED Review of Systems ROS: Stated complaint: DETOX/WITHDRAWALS Other details as noted in HPI Comment: All other systems reviewed and negative Constitutional: denies: chills, fever, malaise Respiratory: denies: cough, shortness of breath Cardiovascular: denies: chest pain Gastrointestinal: nausea, vomiting. denies: abdominal pain Psychiatric: denies: depression ED Past Medical Hx - Past Medical History Previous Medical History?: Yes Additional medical history: Heroin dependence - Surgical History Past Surgical History?: No - Social History Smoking Status: Current Every Day Smoker Substance Use Type: Alcohol, Heroin - Medications Home Medications: Home Medications Medication Instructions Recorded Confirmed Last Taken Type levoFLOXacin [Levaquin TAB] 500 mg PO QDAY #7 tablet 05/08/21 Unknown Rx LORazepam [Ativan] 0.5 mg PO Q6H PRN #10 tablet 08/26/21 Unknown Rx Ondansetron [Zofran Odt] 4 mg PO Q8HR PRN #10 tab.rapdis 08/26/21 Unknown Rx ED Physical Exam - General Limitations: No Limitations General appearance: alert, in no apparent distress, other - Head Head exam: Present: atraumatic, normocephalic - Eye Eye exam: Present: normal appearance - ENT ENT exam: Present: mucous membranes moist - Neck Neck exam: Present: normal inspection, full ROM - Respiratory Respiratory exam: Present: normal lung sounds bilaterally. Absent: respiratory distress, wheezes, rales, rhonchi - Cardiovascular Cardiovascular Exam: Present: regular rate, normal rhythm, normal heart sounds. Absent: systolic murmur, diastolic murmur, rubs, gallop - GI/Abdominal GI/Abdominal exam: Present: soft, normal bowel sounds. Absent: distended, tenderness, guarding, rebound - Rectal Rectal exam: Present: deferred - Extremities Exam Extremities exam: Present: normal inspection - Back Exam Back exam: Present: normal inspection - Neurological Exam Neurological exam: Present: alert, oriented X3 - Psychiatric Psychiatric exam: Present: normal affect, normal mood - Skin Skin exam: Present: warm, dry, intact, normal color. Absent: rash ED Course Vital Signs 08/26/21 08/26/21 08/26/21 00:47 02:16 02:17 Temperature 98.1 F Pulse Rate 89 69 Respiratory 16 13 13 Rate Blood Pressure Blood Pressure 121/69 111/68 [Right] O2 Sat by Pulse 100 99 99 Oximetry 08/26/21 08/26/21 02:34 03:00 Temperature Pulse Rate 76 64 Respiratory 12 Rate Blood Pressure 111/68 Blood Pressure 134/84 [Right] O2 Sat by Pulse 99 Oximetry ED Medical Decision Making - Medical Decision Making Heroin withdrawal: Normal vital signs. Patient received IV fluid crystalloid, IV Zofran, clonidine IV Ativan I will prescribe Zofran and Ativan. Discharged home. I provided a list of substance abuse programs. Critical care attestation.: If time is entered above; I have spent that time in minutes in the direct care of this critically ill patient, excluding procedure time. ED Disposition Clinical Impression: Heroin withdrawal Disposition: HOME / SELF CARE / HOMELESS Is pt being admited?: No Does the pt Need Aspirin: No Condition: Stable Instructions: Opioid Withdrawal Prescriptions: LORazepam [Ativan] 0.5 mg PO Q6H PRN #10 tablet PRN Reason: Anxiety/withdrawal Ondansetron [Zofran Odt] 4 mg PO Q8HR PRN #10 tab.rapdis PRN Reason: Nausea
[2021-08-26 03:01] VITALS: BP 134/84
== END 2021-08-26 03:59 | disposition home or self-care (01) ==
LOC: ED 00:28
DX: F11.23 Opioid dependence with withdrawal (principal); F17.200 Nicotine dependence, unspecified, uncomplicated; Z72.89 Other problems related to lifestyle; Z79.899 Other long term (current) drug therapy
CPT/HCPCS: 96361; 96374; 96375; 96376; 99283; J2060; J2405; J7030; Q0162